=== PATIENT | female | born 1960 | race Caucasian/White ===

== ENCOUNTER → 2019-11-29 | Outpatient (CLI) | payer BC ==
--- NOTE | 2019-11-29 09:28 | RAD ---
EXAM: Right lower extremity venous Doppler sonogram. HISTORY: Pain and swelling. TECHNIQUE: Henderson scale and color Doppler sonographic evaluation of the right lower extremity veins with spectral waveform analysis was performed. FINDINGS: There is normal color flow, normal compressibility and there are normal spectral waveforms in the common femoral, superficial femoral, popliteal, posterior tibial and greater saphenous veins. IMPRESSION: No Doppler evidence of lower extremity deep venous thrombosis. Electronically signed by: Saray Hodges MD (11/29/2019 9:26 AM) [facility] [place]
== END | disposition home or self-care (01) ==
LOC: US 08:45
PROVIDERS: ATTEND Family Medicine
DX: M79.661 Pain in right lower leg (principal); R79.89 Other specified abnormal findings of blood chemistry
CPT/HCPCS: 93971